=== PATIENT | female | born 1985 | race Caucasian/White ===

== ENCOUNTER 2021-06-24 11:10 | Emergency (ER) | payer SELFPAY ==
[2021-06-24 11:19] VITALS: BP 111/82; PULSE 107; RESP 17; TEMP 36.7; O2SAT 100
--- NOTE | 2021-06-24 12:16 | ED.ALLEREA ---
HPI - Allergic Reaction General Chief complaint: Allergic Reaction <Sabine Tran PA-C - Last Filed: 06/24/21 12:35> Stated complaint: rash <Sabine Tran PA-C - Last Filed: 06/24/21 12:35> Time Seen by Provider: 06/24/21 11:49 <Sabine Tran PA-C - Last Filed: 06/24/21 12:35> Source: patient <BRONWYN Strauss Last Filed: 06/24/21 12:35> Mode of arrival: ambulatory <Sabine Tran PA-C - Last Filed: 06/24/21 12:35> Limitations: no limitations <Sabine Tran PA-C - Last Filed: 06/24/21 12:35> History of Present Illness HPI narrative: This is a 35 year old female that presents to the ER for rash present x 10 days. [email or web address] Shortly after that she noted an itchy rash over her arms and legs. Denies any new soaps, lotions, detergents, or medications. She finished a medrol dose pack 3 days ago and noted worsening of her rash and itching after finishing this. She has been using OTC creams with little relief. Denies fever or abnormal drainage. <Sabine Tran PA-C - Last Filed: 06/24/21 12:35> Related Data Allergies/adverse reactions: Allergies Allergy/AdvReac Type Severity Reaction Status Date / Time Penicillins Allergy Unknown Swelling Verified 06/24/21 11:18 <Sabine Tran PA-C - Last Filed: 06/24/21 12:35> Review of Systems Review of Systems: CONSTITUTIONAL: Denies fever SKIN: Reports rash and itching. <Sabine Tran PA-C - Last Filed: 06/24/21 12:35> All systems reviewed & are unremarkable except as noted in HPI and below <Sabine Tran PA-C - Last Filed: 06/24/21 12:35> [facility] Past Medical History Medical History: Medical History (Updated 06/24/21 @ 12:33 by Sabine Tran PA-C) No active medical problems <Sabine Tran PA-C - Last Filed: 06/24/21 12:35> Social History Social History: Social History (Updated 06/24/21 @ 12:23 by Sabine Tran PA-C) Smoking status: Current every day smoker <Sabine Tran PA-C - Last Filed: 06/24/21 12:35> Exam Narrative: GENERAL: Well-appearing, well-nourished, and in no acute distress. HEAD: Normocephalic, atraumatic. EYES: EOMI. EXTREMITIES: Normal range of motion. No edema. Papular, red rash present on the arms and legs with excoriations SKIN: Warm, dry, no rash. NEURO: No focal deficits. Alert and oriented x3. PSYCH: Normal mood and affect <Sabine Tran PA-C - Last Filed: 06/24/21 12:35> Course Vital Signs Vital signs: Vital Signs Temperature 98.1 F 06/24/21 11:19 Pulse Rate 107 H 06/24/21 11:19 Respiratory Rate 17 06/24/21 11:19 Blood Pressure 111/82 06/24/21 11:19 Pulse Oximetry 100 06/24/21 11:19 Temperature 98.1 F 06/24/21 11:19 Pulse Rate 100 06/24/21 12:59 Respiratory Rate 18 06/24/21 12:59 Blood Pressure 108/78 06/24/21 12:59 Pulse Oximetry 100 06/24/21 12:59 <Sabine Tran PA-C - Last Filed: 06/24/21 12:35> Vital Signs Temperature 98.1 F 06/24/21 11:19 Pulse Rate 107 H 06/24/21 11:19 Respiratory Rate 17 06/24/21 11:19 Blood Pressure 111/82 06/24/21 11:19 Pulse Oximetry 100 06/24/21 11:19 Temperature 98.1 F 06/24/21 11:19 Pulse Rate 100 06/24/21 12:59 Respiratory Rate 18 06/24/21 12:59 Blood Pressure 108/78 06/24/21 12:59 Pulse Oximetry 100 06/24/21 12:59 <Dennise Garcia MD - Last Filed: 06/24/21 15:09> MDM - Allergic Reaction MDM Narrative Medical decision making narrative: Patient presents to the emergency department for itchy rash noted after contact with the plant irritant. Finished a Medrol Dosepak and then had worsening of symptoms. Patient instructed on use of antihistamines. Will be put on longer steroid taper to avoid rebound. She is to follow-up with her primary care doctor. She was given warnings to return to the ER <Sabine Tran PA-C - Last Filed: 06/24/21 12:35> Critical Care Time Critic
[2021-06-24 12:59] VITALS: BP 108/78; PULSE 100; RESP 18; O2SAT 100
== END 2021-06-24 12:45 | disposition home or self-care (01) ==
PROVIDERS: Emergency Provider General Practice
DX: L23.7 Allergic contact dermatitis due to plants, except food (principal); F17.200 Nicotine dependence, unspecified, uncomplicated
CPT/HCPCS: 99283